=== PATIENT | female | born 1990 | race Two or more races ===

== ENCOUNTER 2025-07-19 19:52 | Emergency (ER) | payer OTHER ==
[~2025-07-19] VITALS: Ht 160 cm; Wt 62.1 kg
[~2025-07-19 19:52] MED LIST: IBUPROFEN800 MG PO; SEPTRA DS TABLE1 TAB PO; [UNRECOGNIZED DRUG - OTHER]
[2025-07-19] MEDS ORDERED: CLONAZEPAM0.5 MG PO (21:00)
[2025-07-19] MEDS ORDERED: DEXAMETHASONE 4 MG TABLET PO ONE (21:30)
[2025-07-19] MEDS ORDERED: TETANUS & DIPHTHERIA TOX,ADULT 0.5 ML VIAL IM ONE (21:30)
[2025-07-19] MEDS ORDERED: CEFAZOLIN SODIUM 1,000 MG VIAL IV ONE (21:30)
[2025-07-19] MEDS ORDERED: KETOROLAC TROMETHAMINE 30 MG VIAL IU ONE (21:30)
[2025-07-19] MEDS ORDERED: FAMOTIDINE/PF 20 MG/2 ML VIAL IV ONE (21:30)
[2025-07-19] MEDS ORDERED: FAMOTIDINE/PF 20 MG/2 ML VIAL ONE (21:32)
[2025-07-19] MEDS ORDERED: CEFAZOLIN SODIUM 1,000 MG VIAL ONE (21:32)
[2025-07-19] MEDS ORDERED: DEXAMETHASONE SODIUM PHOSPHATE 4 MG/ML VIAL ONE (21:32)
[2025-07-19] MEDS ORDERED: KETOROLAC TROMETHAMINE 30 MG VIAL ONE (21:32)
[2025-07-19] MEDS ORDERED: DIPHTH,PERTUSS(ACELL),TET VAC 0.5 ML SYRINGE IM ONE (21:33)
[2025-07-19 22:15] LABS: BASO % 0.5 % (0.1-1.2); EOS # 0.11 (0.04-0.54); EOS % 0.9 % (0.7-7.0); LYMPH # 2.47 (1.18-3.74); LYMPH % 19.8 % (19.3-53.1); MEAN PLATELET VOLUME 10.00 fl (9.4-12.4); MONO # 0.87 (0.24-0.82); MONO % 7.0 % (4.7-12.5); NEUT # 8.94 (1.56-6.13); NEUT % 71.6 % (34.0-71.1); RED CELL DISTRIBUTION WIDTH 11.7 % (11.6-14.4)
[2025-07-19 22:45] LABS: BUN CREA RATIO 19 (7.0-25.0); CREATININE SERUM 0.86 mg/dL (0.55-1.02); GFR 76.47; GLUCOSE FASTING 106 mg/dL (65-100); OSMOLALITY SERUM 285 MOSM/KG (275-295)
[2025-07-20] MEDS ORDERED: AMOX-CLAV 875-1 EACH PO (00:40)
[2025-07-20] MEDS ORDERED: PEPCID AC20 MG PO (00:40)
[2025-07-20] MEDS ORDERED: KETO10TA2 PO (00:40)
== END 2025-07-20 01:08 | disposition home or self-care (01) ==
LOC: ER 19:53
PROVIDERS: Student in an Organized Health Care Education/Training Program
DX: S60.571A Other superficial bite of hand of right hand, initial encounter (principal); W54.0XXA Bitten by dog, initial encounter; Y93.89 Activity, other specified; Y92.89 Other specified places as the place of occurrence of the external cause
CPT/HCPCS: 36415; 90471; 90714; J1670